=== PATIENT | female | born 1975 | race Caucasian/White ===

== ENCOUNTER 2024-08-27 16:43 | Emergency (ER) | payer MEDICAID ==
[~2024-08-27] VITALS: Ht 172.7 cm; Wt 65.8 kg
[2024-08-27 17:16] VITALS: BP 124/86; PULSE 105; RESP 20; TEMP 97.6; O2SAT 99
[2024-08-27 17:17] VITALS: BP 104/78; PULSE 118; RESP 18; TEMP 97.9; O2SAT 98
[2024-08-27] MEDS ORDERED: CHLO-757 PO (18:51)
[2024-08-27 19:13] VITALS: BP 112/72; PULSE 98; RESP 16; TEMP 97.9; O2SAT 98
== END 2024-08-27 19:13 | disposition home or self-care (01) ==
LOC: MED 16:43
DX: F10.229 Alcohol dependence with intoxication, unspecified (principal); R25.1 Tremor, unspecified; R03.0 Elevated blood-pressure reading, without diagnosis of hypertension; Z79.899 Other long term (current) drug therapy; Y90.9 Presence of alcohol in blood, level not specified
CPT/HCPCS: 99283